=== PATIENT | female | born 1980 | race Caucasian/White ===

== ENCOUNTER → 2017-03-11 | Outpatient (CLI) | payer OTHER ==
--- NOTE | 2017-03-12 05:41 | PAP/PSG TECHNICIAN REPORT ---
[facility] Mechanical Systems Control Engineer Polysomnogram Report Study name: None Report date: 03/12/2017 Study date: 03/11/2017 Referring Physician: Julisa Jo M.D. Name: JARRED MONTALVO Interpreting Physician: Layton Jo M.D. Date of : 1980 Mechanical Systems Control Engineer: RICA Keller. Sex: Female Age: 37 StudyType: PSG Weight: 281 lbs Height: 37 years, Height 5' 5.25" Neck Circum:15inches BMI: 46.4 Medications: Ventolin HFA 108mcg/act, Flexeril 10mg, Lutera 0.1-20mg-mcg, Claritin 10mg, Wellbutrin Xl 150mg, Flonase 50mcg/act, Proventil 2.5mg/3ml, Celexa 20mg Patient History Study started on room air with ETCO2 monitoring in room #8. 37 yr old female here tonight for a possible split psg. She complains of EDS, loud snoring and witnessed apnea. She has an occasional headache. Her legs move while she sleeps. Her ESS=9/24. Neck circ=15 inches. Parameters Monitored NPSG: E1-M2, E2-M1, Fp1-M2, Fp2-M1, F3-M2, F4-M2, F4-M1, C3-M2, C4-M2, C4-M1, O1-M2, O2-M2, O2-M1, T3-M2, T4-M1, P3-M2, P4-M1, CHIN1, CHIN2, HR, EKG, Legs, PFLOW, SNOR, FLOW, CFLOW, Tidal Volume, THOR, ABDO, SpO2, PLTH, CPRESS, ETCO2 Wave, ETCO2, pH Sleep Architecture Sleep Stages Time at Lights Off 9:43:46 PM STAGES Time (min.) TST (%) Time at Lights On 5:27:46 AM Wake 109.5 -- Total Recording Time (TRT) 464.00 min. N1 8.0 2 Total Sleep Period (TSP) 417.5 min. N2 203.0 57 Total Sleep Time (TST) 354.5min. N3 98.0 28 Awake Time 109.5 min. REM 45.5 13 Wake after Sleep Onset 75.5 min. Sleep Efficiency (SE) 76 % Sleep Onset Latency (SRIKANTH) 34.0 min. Number of Stage 1 Shifts None Awakenings 23 Stage Changes 79 Number of REM periods 3 REM 45.5 13 REM Latency 48.0 min. NREM 309.0 87 Body Position Analysis Supine Right Left Side Prone Vertical Total Sleep Time (min.) 77.4 270.7 54.0 324.66 5.2 0.0 Total Sleep Time (%) 8% 76% 15% 92 1% N/A% Total Sleep Time REM (min.) 0.0 45.5 0.0 None 0.0 0.0 Total Sleep Time NREM (min.) 26.7 225.2 54.0 None 3.2 0.0 Intermittent Wake (min.) 50.7 50.5 6.3 None 2.0 0.0 Total Sleep Period (%) 11% None None None None None Arousals Myoclonus (PLM) * Events Count Index Events Count Index Spontaneous 13 2 Events Awake (PLMW) 212 116.2 Respiratory 1 0.2 Events Asleep w/ Arousal (PLMA) 25 4.2 PLM 24 4 Events Asleep w/o Arousal (PLMS) 95 16.1 Snoring 6 1 Total Asleep 120 20.3 Total 44 7 Total 332 43 Respiratory Analysis * CA OA MA CH H RERA Total Count 0 0 0 0 7 0 7 Index 0.0 0.0 0.0 0 1.2 0 1.2 Mean Duration 0.0 0.0 0.0 0.00 17.9 0.0 17.9 Longest Duration 0.0 0.0 0.0 0.00 0.0 0.0 37.3 Respiratory Event Summary Total Supine ~Supine Right Left Prone REM NREM Apneas Count 0 0 0 0 0 0 0 0 Index 0.0 0 0 0.0 0.0 0 0 0 Hypopneas (4% Desat) Count 7 1 6 6 0 0 2 5 Index 1.2 2.2 1 1.3 0.0 0.0 2.6 1.0 Apneas & All Hypopneas Count 7 1 6 6 0 0 2 5 Index 1.2 2 1 1 0 0 2.6 1.0 Respiratory Events (Drying Machine Receiver+All Hyp+RERA) Count 7 1 6 6 0 0 2 5 Index 1.2 2 1 1.3 0.0 0.0 2.6 1.0 Respiratory Related Arousal Count 1 1 0 0 0 0 0 1 Index 0.2 2 0 0 0 0 0 0 Snoring Analysis Supine Right Left Prone REM NREM Total Snore duration 2.3 min Snores count 12 22 9 1 3 41 44 Snore mean duration 3.1 Sec Snores index 27 5 10 19 4.0 8.0 7.4 TST with snoring (%) 0.6% SpO2 Analysis Total REM NREM Awake <50% 0.0 min. 0.0 min. 0.0 min. 0.0 min. 51 - 60% 0.0 min. 0.0 min. 0.0 min. 0.0 min. 61 - 70% 0.0 min. 0.0 min. 0.0 min. 0.0 min. 71 - 80% 0.0 min. 0.0 min. 0.0 min. 0.0 min. 81 - 90% 436.7 min. 45.5 min. 307.7 min. 83.5 min. 91 - 100% 12.6 min. 0.0 min. 0.8 min. 11.9 min. Average 87 87 87 88 Minimum SpO2 81 81 82 82 Desaturation Event Index 4.3 6.6 2.5 8.2 # Desat. Events below 89% 32 5 13 14 Time(%) with Saturation below 89% 83.0 8.9 63.1 11.0 Time(min.) with Saturation below 89% 373.1 40.2 283.4 49.6 Heart Rate Analysis End Tidal CO2 Analysis Min (bpm) Max (bpm) Average (bpm) TSP (mins) % of TSP Awake 45 300 103 Above 55 mmHg 0.0 0.0 NREM 72 127 88 50-55 mmHg 0.0 0.0 REM 76 98 88 45-50 mmHg 0.4 0.1 Overall 72 127 88 40-45 mmHg 76.7 21.6 35-40 mmHg 264.2 74.5 30-35 mmHg 11.7 3.3 Average ETCO2 0.2 Supplemental O2 Values Minimum O2 level: None Value Start Time End Time Mechanical Systems Control Engineer Comments Mr. Montalvo slept in the right, left, supine and prone positions. Cardiac arrhythmia and PLM's noted. No bruxism noted. Snoring was noted and scored as a 2 on a scale of 1 through 5. (0=no snoring, 5=snoring loud enough to be heard through a closed door or down the miranda way) She awoke to use the restroom 1 time during the night. She stated that she slept about the same as usual. She woke up many times from coughing. The final report will be interpreted and signed by a sleep physician. The completed physician report will then be placed in the patient medical record. Therapy (cm H2O) 0 TIB (min.) 464.0 TST (min.) 354.5 Sleep Onset (min.) 34.0 REM Onset From Sleep (min.) 48.0 Sleep Efficiency % 76 Wakefulness (%) 24 Wakefulness (min.) 109.5 NREM 1 (%) 2 NREM 1 (min.) 8.0 NREM 2 (%) 57 NREM 2 (min.) 203.0 NREM 3 (%) 28 NREM 3 (min.) 98.0 REM (%) 13 REM (min.) 45.5 # Arousals 44 Arousal Index 7 # Snore 44 Snore Index 7.4 AHI 1.2 AHI Supine 2 AHI Non-Supine 1 NREM AHI 1.0 REM AHI 2.6 RDI 1.2 # Obstructive Apnea 0 # Central Apnea 0 # Mixed Apnea 0 # Hypopneas 7 RERAs 0 Total Respiratory Events 9 Time Below SpO2 89% (min.) 323.5 Mean NREM SpO2 (%) 87 Mean REM SpO2 (%) 87 Mean Sleep SpO2 (%) 87 Min NREM SpO2 (%) 82 Min REM SpO2 (%) 81 Position Supine (min.) 77.4 Position Non-supine (min.) 327.8 LM Index Sleep 20.3 LM Index NREM 21.0 LM Index REM 15.8 Mean Heart Rate (bpm) 88 Min Heart Rate (bpm) 72
--- NOTE | 2017-04-06 15:50 | Sleep Study ---
Sleep Study Report Date of Service: 03/11/17 Sleep Study Report Referring physician: Layton Jo INterpreting physician: Morteza Jo Cargoman Nissa Sandoval [facility] Report date: 03/12/17 Polysomnogram Report Janice Oconnor 1980 ID: [id number] Kamran presents to the sleep lab for an overnight sleep study. She complains of excessive daytime sleepiness witnessed apneas and loud snoring. Her leg smooth around a lot when she sleeps. She has occasional headaches. Her [place] sleepiness scale score on the evening of the study is 9. BMI is 46.4. Kamran total sleep period time was 417.5 minutes. Total sleep time was 354.5 minutes. Sleep efficiency was 76%. Latency to sleep onset was 34 minutes with weak after sleep onset of 75.5 minutes. Total non-REM sleep time was 309 minutes. She spent 2% of that time in N1 sleep 57% in N2 sleep and 28% in N3 sleep. REM latency was 48 minutes. Total REM sleep time was 45.5 minutes or 13 % of total sleep time. There were 44 cortical arousals from sleep. 13 of these arousals were spontaneous 1 was due to a respiratory event 24 were due to periodic limb movements of sleep and 6 were due to snoring. There were 120. Attic limb movements noticed on this test. Limb movement index was 20.3 limb movement with arousal index was 4.2 There were no central obstructive or mixed apneas on this test. There were 7 hypopnea and no RERA. Overall AHI was 1.2 which is normal. There were 44 snoring events. Total sleep time with snoring was 0.6%. Mean saturation however was low at 87% with desaturations to 81% during sleep. Saturations were less than 89% for 373.1 minutes of recorded time. End-tidal CO2 was recorded on this test. End-tidal CO2 were between 40 and 45 mm of mercury for 21.6% of total sleep period time, between 35 and 40 mm of mercury for 74.5% and between 30 and 35 mm of mercury for 3.3% of total sleep period time. Impression and plan This is a 37-year-old female without evidence of sleep apnea but significant nocturnal hypoxemia on this study. 1. this patient would likely benefit from oxygen therapy at bedtime. Clinical correlation is needed to determine the cause of her hypoxemia. Her mean saturation was low throughout the study. She may need pulmonary function tests and or a pulmonary consultation. Thank you. Layton Jo MD
== END | disposition home or self-care (01) ==
LOC: C.NEUR 21:00 → EDBD 21:00
PROVIDERS: ATTEND Family Medicine
DX: R06.83 Snoring (principal); R06.81 Apnea, not elsewhere classified; G47.19 Other hypersomnia; G47.61 Periodic limb movement disorder; F51.11 Primary hypersomnia; F51.04 Psychophysiologic insomnia